=== PATIENT | male | born 1980 | race American Indian/Alaskan Native ===

== ENCOUNTER 2019-06-23 06:35 | Day surgery (SDC) | payer BC ==
[~2019-06-23 06:35] MED LIST: Dextrose 5%-0.45% NaCl 1,000 ML IV SCH; Midazolam 1 MG/ML 2 ML SDV ONE; fentaNYL 100 MCG/2 ML SDV ONE
[2019-06-23] MEDS ORDERED: fentaNYL 100 MCG/2 ML SDV IV ONE ×3 (06:36→07:12)
[2019-06-23] MEDS ORDERED: Midazolam 1 MG/ML 2 ML SDV IV ONE ×3 (06:36→07:13)
--- NOTE | 2019-06-23 12:37 | OR ---
DATE: 06/23/2019 PROCEDURE: Esophagogastroduodenoscopy, NBI, and multiple pinch biopsies. INSTRUMENT USED: [id number]-HQ190 Olympus video panendoscope. PREMEDICATIONS: No oral or topical anesthesia used. Fentanyl 100 mcg intravenous, Versed 2 mg intravenous. The procedure was done under pulse oximetry, BP recording, and vehicle monitor technician. INDICATION: The patient with persistent longstanding heartburn, on PPI. Also having chronic diarrhea unexplained and not responsive to medical measures. Esophagogastroduodenoscopy is performed for detection of any active erosive lesions, Souza esophagus and/or malignancy also under consideration, H. pylori status to be determined, small bowel biopsies to be obtained for any evidence of celiac disease, endoscopic hemostasis therapy if needed. PROCEDURE IN DETAIL: The scope was passed with ease. Adequate visualization of the esophagus was made from proximal to distal areas. No upper esophageal lesions identified. No distal esophageal stricture. No uphill or downhill esophageal varices. No Clara-Joshua tear noted. Grade A erosive changes were noted by [place] criteria. No esophageal polyp or tumor mass identified. Z- line was seen at around 40 cm distal to the oral verge, configuration consistent with grade 1 by ZAP classification. NBI views were obtained of the distal esophagus. No proximal gastric varices noted. Gastric fundus examination by retroflexion showed no polypoid lesions. No gastric ulcer, malignant mass, or vascular ectasia identified. Duodenal bulb showed no ulcer. Visualized second part of the duodenum was unremarkable. Multiple pinch biopsies, 4 in number, were taken from different areas of the second part of the duodenum and tissues were also obtained from the duodenal bulb at 9 and 12 o'clock positions and sent for any histopathologic evidence of celiac disease. Multiple pinch biopsies were obtained from the gastric antrum and proximal body and sent for PyloriTek test for H. pylori and histopathology. No bleeding was noted from any of the visualized areas at the completion of examination. Photographs were taken of the duodenal bulb, gastric antrum, fundus, and distal esophagus. IMPRESSION: Grade A gastroesophageal reflux disease. The patient tolerated the procedure well. [facility] /[id number]
== END 2019-06-23 09:29 | disposition home or self-care (01) ==
LOC: DL.ENDO 06:35
PROVIDERS: ATTEND Internal Medicine Gastroenterology
DX: K21.9 Gastro-esophageal reflux disease without esophagitis (principal); K52.9 Noninfective gastroenteritis and colitis, unspecified; I10 Essential (primary) hypertension; M10.9 Gout, unspecified; E66.09 Other obesity due to excess calories; Z90.49 Acquired absence of other specified parts of digestive tract; Z68.35 Body mass index [BMI] 35.0-35.9, adult
CPT/HCPCS: 43239; 87077; J2250; J3010; J7042

== ENCOUNTER 2019-06-30 06:15 | Day surgery (SDC) | payer BC ==
[~2019-06-30 06:15] MED LIST changes: -Dextrose 5%-0.45% NaCl 1,000 ML IV SCH
[2019-06-30] MEDS ORDERED: fentaNYL 100 MCG/2 ML SDV IV ONE ×7 (06:16→07:31)
[2019-06-30] MEDS ORDERED: Midazolam 1 MG/ML 2 ML SDV IV ONE ×9 (06:16→07:41)
[2019-06-30] MEDS ORDERED: Dextrose 5%-0.45% NaCl 1,000 ML IV SCH (07:15)
--- NOTE | 2019-06-30 10:51 | OR ---
DATE: 06/30/2019 PROCEDURES: Total colonoscopy, terminal ileoscopy, and multiple pinch biopsies. INSTRUMENT USED: [id number]-H190DL Olympus video colonoscope. PREMEDICATIONS: Fentanyl 200 mcg intravenous, Versed 5 mg intravenous, nasal O2 cannula. The procedure was done under pulse oximetry, BP recording, and potline monitor. INDICATION: The patient with chronic diarrhea unexplained and not responsive to medical measures. Colonoscopic examination is done for detection of any polypoid lesions and removal, biopsies to be obtained for microscopic colitis, endoscopic hemostasis therapy if needed. DESCRIPTION OF PROCEDURE: Initial rectal exam was unremarkable. Rigid anoscopy was normal. Colonoscope was passed with ease up to and beyond the ileocecal junction to visualize normal-appearing terminal ileum. Photographs were taken of the normal-appearing cecum. No bleeding was noted from any of the visualized areas at the commencement of the examination. The bowel preparation was found to be adequate, [place] scale 2 in all the regions. No stricture. No vascular ectasia. No large isolated ulcerations seen. No evidence of diffuse inflammatory bowel disease in the form of friability, contact bleeding, or ulcerations. No polyp or tumor mass identified. Probing the proximal sides of folds and flexures using adequate distention and clearing up the stool material, withdrawal of the scope was made. Multiple pinch biopsies were taken from the normal-appearing mucosa of the mid transverse colon, mid descending colon, and rectosigmoid, and sent for any histopathologic evidence of microscopic colitis. No bleeding was noted from any of the visualized areas at the completion of examination. IMPRESSION: Normal study. The patient tolerated the procedure well. [facility] /[id number]
== END 2019-06-30 09:51 | disposition home or self-care (01) ==
LOC: DL.ENDO 06:15
PROVIDERS: ATTEND Internal Medicine Gastroenterology
DX: K52.9 Noninfective gastroenteritis and colitis, unspecified (principal)
CPT/HCPCS: 45380; J2250; J3010; J7042